=== PATIENT | female | born 1995 | race Caucasian/White ===

== ENCOUNTER 2017-10-20 12:48 | Emergency (ER) | payer OTHER ==
--- NOTE | 2017-10-20 13:20 | CPEKG ---
Heart Rate: 70 RR Interval: 857 P-R Interval: 133 QRSD Interval: 84 QT Interval: 428 QTC Interval: 462 P Arthur: 37 QRS Arthur: 71 T Wave Arthur: 35 EKG Severity - NORMAL ECG - EKG Impression: SINUS RHYTHM Electronically Signed By: Dorothy Gonzalez 21-Oct-2017 15:03:17
--- NOTE | 2017-10-20 13:26 | EDPHY ---
H & P Stated Complaint: sent from [facility] with +mono, d-dimer of 1500- r/o PE or PNE Time Seen by Provider: 10/20/17 13:13 HPI/ROS: CHIEF COMPLAINT: [place], sent for positive D-dimer HISTORY OF PRESENT ILLNESS: The patient is a 22-year-old healthy student who went to the [facility] today with a sore throat and left chest/upper abdominal pain. She had a positive mono test done and a negative flu test and also a D-dimer sent that came back positive. She was then referred here to rule out PE. Her pain on my exam is over her spleen. She does not have pain with deep inspiration. She is not hypoxic. She does have a Mirena IUD but no other risk factors for DVTs or PEs. Her EKG is normal at the clinic and here. There is also preliminary reading on a chest x-ray done at the clinic that said possible left lower lobe pneumonia. They started her on a Z-Jed for this. She did have a minor fever this morning. REVIEW OF SYSTEMS: Constitutional: See HPI EENTM: See HPI Respiratory: denies: cough, shortness of breath Cardiac: denies: chest pain, irregular heart rate, lightheadedness, palpitations Gastrointestinal/Abdominal: denies: abdominal pain, diarrhea, nausea, vomiting, blood streaked stools Genitourinary: denies: dysuria, frequency, hematuria, pain Musculoskeletal: denies: joint pain, muscle pain Skin: denies: lesions, rash, jaundice, bruising Neurological: denies: headache, numbness, paresthesia, tingling, dizziness, weakness Hematologic/Lymphatic: denies: blood clots, easy bleeding, easy bruising Immunologic/allergic: denies: HIV/AIDS, transplant EXAM: GENERAL: Well-appearing, well-nourished and in no acute distress. HEAD: Atraumatic, normocephalic. EYES: Pupils equal round and reactive to light, extraocular movements intact, sclera anicteric, conjunctiva are normal. ENT: TMs normal, nares patent, oropharynx clear without exudates. Moist mucous membranes. NECK: Normal range of motion, supple without lymphadenopathy or JVD. LUNGS: Breath sounds clear to auscultation bilaterally and equal. No wheezes rales or rhonchi. HEART: Regular rate and rhythm without murmurs, rubs or gallops. ABDOMEN: Soft, nontender, normoactive bowel sounds. No guarding, no rebound. Slight splenomegaly BACK: No CVA tenderness, no spinal tenderness, step-offs or deformities EXTREMITIES: Normal range of motion, no pitting or edema. No clubbing or cyanosis. NEUROLOGICAL: Cranial nerves II through XII grossly intact. Normal speech, normal gait. 5/5 strength, normal movement in all extremities, normal sensation PSYCH: Normal mood, normal affect. SKIN: Warm, dry, normal turgor, no visible rashes or lesions. Source: Patient Exam Limitations: No limitations - Personal History LMP (Females 10-55): IUD In Place Current Tetanus Diphtheria and Acellular Pertussis (TDAP): Yes - Medical/Surgical History Hx Asthma: No Hx Chronic Respiratory Disease: No Hx Diabetes: No Hx Cardiac Disease: No Hx Renal Disease: No Hx Cirrhosis: No Hx Alcoholism: No Hx HIV/AIDS: No Hx Splenectomy or Spleen Trauma: No Other PMH: mono 2018, prolonged QT sydrome- resolved - Family History Significant Family History: No pertinent family hx - Social History Smoking Status: Never smoked Alcohol Use: Sober Drug Use: None Constitutional: Initial Vital Signs Temperature (C) 37.3 C 10/20/17 12:52 Heart Rate 87 10/20/17 12:52 Respiratory Rate 18 10/20/17 12:52 Blood Pressure 112/84 H 10/20/17 12:52 O2 Sat (%) 94 10/20/17 12:52 O2 Delivery Mode Room Air Allergies/Adverse Reactions: No Known Allergies Allergy (Unverified 10/20/17 12:51) Home Medications: Medication Instructions Recorded NK [No Known Home Meds] 10/20/17 Medical Decision Making - Diagnostics EKG Interpretation: An EKG obtained and was read and documented in trace view. Please see trace view for full reading and report. Sinus rhythm, no signs of right heart strain Imaging: Discussed imaging studies w/ director call Radiologist ED Course/Re-evaluation: I spoke with Dr. Miranda who read the x-ray performed a Lloyd. He states that there is no sign of pneumonia. I told the patient she does not need the azithromycin. I do not feel that there is an indicated to perform a CT angio in this young female patient considering the fact that her lower left chest pain is actually likely to be her spleen in the setting of mono. Also her D- dimer is positive which would be expected in someone with an infection. She is not hypoxic. She does not have any pleuritic pain. We discussed indications for returning. She understands that I cannot guarantee she does not have a blood clot but agrees with this reasoning of not performing a CT scan at this time. Differential Diagnosis: Partial list of the Differential diagnosis considered include but were not limited to; mononucleosis, pneumonia PE and although unlikely based on the history and physical exam, I also considered influenza meningitis, sepsis, acute coronary disease, rib fracture, pneumothorax. I discussed these differential diagnoses and the plan with the patient as well as the usual and expected course. The patient understands that the diagnosis is provisional and that in medicine we are not always correct and that further workup is often warranted. Usual and customary warnings were given. All of the patient's questions were answered. The patient was instructed to return to the emergency department should the symptoms at all worsen or return, otherwise to followup with the physician as we discussed. Departure - Departure Disposition: Home, Routine, Self-Care Clinical Impression: Mononucleosis Condition: Good Instructions: Mononucleosis (ED) Referrals: TJ SHUKLA [Other] - As per Instructions
[2017-10-20 14:16] VITALS: BP 105/66
== END 2017-10-20 14:15 | disposition home or self-care (01) ==
DX: B27.90 Infectious mononucleosis, unspecified without complication (principal)